=== PATIENT | female | born 1980 | race Caucasian/White ===

== ENCOUNTER → 2017-05-15 | Outpatient (CLI) | payer OTHER ==
[~2017-05-15] MED LIST: ACYC-114 PO; IBUP-1222 PO; OXYC-302 PO; PREN1TAB10 PO; PREN1TAB56 PO
== END | disposition home or self-care (01) ==
LOC: CVU 11:39
PROVIDERS: ATTEND Internal Medicine Cardiovascular Disease
DX: I07.1 Rheumatic tricuspid insufficiency (principal)
CPT/HCPCS: 93306